=== PATIENT | female | born 1975 | race Caucasian/White ===

== ENCOUNTER 2017-09-08 04:09 | Emergency (ER) | payer MEDICAID ==
[~2017-09-08] VITALS: Ht 157.5 cm; Wt 66.2 kg
[2017-09-08 04:25] VITALS: BP 134/78
[2017-09-08] MEDS ORDERED: NO HOME MEDS (04:36)
== END 2017-09-08 05:10 | disposition home or self-care (01) ==
LOC: ER 04:10
DX: F15.10 Other stimulant abuse, uncomplicated (principal); F19.10 Other psychoactive substance abuse, uncomplicated; K08.89 Other specified disorders of teeth and supporting structures; Z72.0 Tobacco use
CPT/HCPCS: 99281; 99406

== ENCOUNTER 2017-12-11 12:06 | Emergency (ER) | payer MEDICAID ==
[~2017-12-11] VITALS: Ht 157.5 cm; Wt 73.5 kg
[~2017-12-11 12:06] MED LIST: NO HOME MEDS
[2017-12-11 12:18] VITALS: BP 137/84
== END 2017-12-11 13:33 | disposition home or self-care (01) ==
LOC: ER 12:07
DX: F15.10 Other stimulant abuse, uncomplicated (principal); Z02.89 Encounter for other administrative examinations
CPT/HCPCS: 99281

== ENCOUNTER 2017-12-27 11:21 | Emergency (ER) | payer MEDICAID ==
[~2017-12-27] VITALS: Ht 157.5 cm; Wt 79.0 kg
[2017-12-27 11:27] VITALS: BP 130/77
[2017-12-27] MEDS ORDERED: IBUP-1984 PO (12:03)
[2017-12-27] MEDS ORDERED: PENI500T2 PO (12:03)
== END 2017-12-27 12:17 | disposition home or self-care (01) ==
LOC: ER 11:22
DX: K08.89 Other specified disorders of teeth and supporting structures (principal); F15.90 Other stimulant use, unspecified, uncomplicated; Z79.899 Other long term (current) drug therapy
CPT/HCPCS: 99283